=== PATIENT | female | born 1955 | race Caucasian/White ===

== ENCOUNTER 2021-12-19 17:33 | Emergency (ER) | payer SELFPAY ==
[2021-12-19 18:00] VITALS: BP 115/69; PULSE 96; RESP 22; TEMP 98.3; BMI 26.5
[2021-12-19] MEDS ORDERED: oxyCODONE HCL 5 MG TABLET PO ONE (19:45)
[2021-12-19] MEDS ORDERED: oxyCODONE HCL 5 MG TABLET ONE (20:00)
== END 2021-12-19 20:11 | disposition home or self-care (01) ==
LOC: JERFT 17:33
DX: M79.604 Pain in right leg (principal); M79.605 Pain in left leg; G89.29 Other chronic pain; Z76.0 Encounter for issue of repeat prescription
CPT/HCPCS: 99281-25

== ENCOUNTER 2022-06-23 19:34 | Inpatient (IN) | payer OTHER ==
[2022-06-23 20:59] VITALS: BMI 24.3
[2022-06-23] MEDS ORDERED: POLYETHYLENE GLYCOL (HEALTHYLAX) 3350 17 GM PACKET PO PRN (21:30)
[2022-06-23] MEDS ORDERED: BISMUTH SUBSALICYLATE 524 MG/30 ML PO PRN (21:30)
[2022-06-23] MEDS ORDERED: IBUPROFEN 600 MG TABLET (FP) PO PRN (21:30)
[2022-06-23] MEDS ORDERED: IBUPROFEN 400 MG TABLET (FP) PO PRN (21:30)
[2022-06-23] MEDS ORDERED: LOPERAMIDE HCL 2 MG CAPSULE PO PRN (21:30)
[2022-06-23] MEDS ORDERED: ONDANSETRON *ODT* 4 MG TABLET SL PRN (21:30)
[2022-06-23] MEDS ORDERED: NALOXONE HCL (KLOXXADO) 8 MG SPRAY NS PRN (21:30)
[2022-06-23] MEDS ORDERED: P-EPHED 60MG/TRIPROLIDI 2.5MG TABLET PO PRN (21:30)
[2022-06-23] MEDS ORDERED: MAGNESIUM HYDROX 2400MG/30ML ORAL SUSPENSION 30 ML CUP PO PRN (21:30)
[2022-06-23] MEDS ORDERED: NICOTINE POLACRILEX 2 MG GUM BUC PRN (21:30)
[2022-06-23] MEDS ORDERED: BENZOCAINE/MENTHOL (CHLORASEPTIC ) LOZENGE MM PRN (21:30)
[2022-06-23] MEDS ORDERED: guaiFENesin 200 MG/10 ML 10 ML UNIT-DOSE CUPS PO PRN (21:30)
[2022-06-23] MEDS ORDERED: NICOTINE 7 MG/24 HOURS TOPICAL PATCH TD PRN (21:30)
[2022-06-23] MEDS ORDERED: MAG HYDROX/AL HYDROX/SIMETH 30 ML UNIT-DOSE CUP PO PRN (21:30)
[2022-06-23] MEDS ORDERED: ACETAMINOPHEN 325 MG TABLET (FP) PO PRN (21:30)
[2022-06-23] MEDS ORDERED: hydrOXYzine PAMOATE 25 MG CAPSULE (FP) PO PRN (21:30)
[2022-06-23] MEDS: METHOCARBAMOL 500 MG TABLET PO PRN (23:48)
[2022-06-23] MEDS: MELATONIN 5 MG TABLETS PO PRN (23:48)
[2022-06-23] MEDS: THIAMINE HCL 100 MG TABLET (FP) PO SCH (23:48)
[2022-06-24] MEDS: DICYCLOMINE HCL 10 MG CAPSULE PO PRN ×2 (02:46→21:06)
[2022-06-24] MEDS ORDERED: methaDONE HCL 10 MG TABLET (FOR DETOX USE ONLY) PO ONE (09:46)
[2022-06-24] MEDS ORDERED: predniSONE 20 MG TABLET (UD) PO SCH (10:00)
[2022-06-24] MEDS: PRENATAL VITAMINS W/ FOLIC ACID TABLET (FP) PO SCH (10:08)
[2022-06-24] MEDS: ALBUTEROL SO4 HFA INHALER IH SCH ×4 (10:08→22:19)
[2022-06-24] MEDS: ACETAMINOPHEN 325 MG TABLET (FP) PO PRN (10:09)
[2022-06-24] MEDS: diazePAM 5 MG TABLET PO SCH ×3 (10:09→22:19)
[2022-06-24 10:33] LABS: HEMATOCRIT 33.6 % (32.4-45.2); HEMOGLOBIN 11.2 GM/dL (10.7-15.3); MCH 29.2 pg (25.7-33.7); MCHC 33.3 g/dl (32.0-36.0); MEAN CELL VOLUME 87.6 fl (80-96); MEAN PLT VOLUME 6.6 fl (7.5-11.1); PLATELET COUNT 493 10^3/uL (134-434); RBC 3.83 M/mm3 (3.60-5.2); RDW 14.3 % (11.6-15.6); WHITE BLOOD COUNT 4.8 K/mm3 (4.0-10.0)
[2022-06-24 10:44] LABS: ALBUMIN 2.9 g/dl (3.4-5.0); BLOOD UREA NITROGEN 16.9 mg/dL (7-18); CALCIUM 9.2 mg/dL (8.5-10.1)
[2022-06-24 10:47] LABS: CREATININE 0.7 mg/dL (0.55-1.3)
[2022-06-24 10:49] LABS: BILIRUBIN,TOTAL 0.3 mg/dL (0.2-1); TOT PROT 6.6 g/dl (6.4-8.2)
[2022-06-24] MEDS: METHOCARBAMOL 500 MG TABLET PO PRN ×2 (17:21→22:21)
[2022-06-24] MEDS: MELATONIN 5 MG TABLETS PO PRN (22:18)
[2022-06-24] MEDS: THIAMINE HCL 100 MG TABLET (FP) PO SCH (22:19)
[2022-06-25] MEDS: METHOCARBAMOL 500 MG TABLET PO PRN ×3 (04:23→22:26)
[2022-06-25] MEDS: ACETAMINOPHEN 325 MG TABLET (FP) PO PRN (04:24)
[2022-06-25] MEDS: diazePAM 5 MG TABLET PO SCH ×3 (05:46→22:25)
[2022-06-25] MEDS: ALBUTEROL SO4 HFA INHALER IH SCH ×4 (10:08→22:00)
[2022-06-25] MEDS: PRENATAL VITAMINS W/ FOLIC ACID TABLET (FP) PO SCH (10:08)
[2022-06-25] MEDS: DICYCLOMINE HCL 10 MG CAPSULE PO PRN (10:11)
[2022-06-25] MEDS: diazePAM 5 MG TABLET PO PRN (17:21)
[2022-06-25] MEDS: MELATONIN 5 MG TABLETS PO PRN (22:25)
[2022-06-25] MEDS: THIAMINE HCL 100 MG TABLET (FP) PO SCH (22:25)
[2022-06-26] MEDS: diazePAM 5 MG TABLET PO SCH ×2 (05:25→17:50)
[2022-06-26] MEDS ORDERED: methaDONE HCL 10 MG TABLET (FOR DETOX USE ONLY) PO ONE (10:00)
[2022-06-26] MEDS: METHOCARBAMOL 500 MG TABLET PO PRN ×2 (10:08→22:17)
[2022-06-26] MEDS: PRENATAL VITAMINS W/ FOLIC ACID TABLET (FP) PO SCH (10:08)
[2022-06-26] MEDS: ALBUTEROL SO4 HFA INHALER IH SCH ×4 (10:08→22:22)
[2022-06-26] MEDS: THIAMINE HCL 100 MG TABLET (FP) PO SCH (22:16)
[2022-06-26] MEDS: MELATONIN 5 MG TABLETS PO PRN (22:16)
[2022-06-26] MEDS: diazePAM 5 MG TABLET PO PRN (22:20)
[2022-06-27] MEDS ORDERED: diazePAM 5 MG TABLET PO ONE (06:00)
[2022-06-27] MEDS: PRENATAL VITAMINS W/ FOLIC ACID TABLET (FP) PO SCH (10:04)
[2022-06-27] MEDS: ALBUTEROL SO4 HFA INHALER IH SCH ×4 (10:04→22:31)
[2022-06-27] MEDS: METHOCARBAMOL 500 MG TABLET PO PRN ×2 (10:05→18:02)
[2022-06-27] MEDS ORDERED: NICOTINE 10 MG CARTRIDGE (INHALER) IH PRN (20:04)
[2022-06-27] MEDS: THIAMINE HCL 100 MG TABLET (FP) PO SCH (22:11)
[2022-06-27] MEDS: MELATONIN 5 MG TABLETS PO PRN (22:12)
[2022-06-28 07:00] VITALS: RESP 16
[2022-06-28 09:19] VITALS: BP 127/71; PULSE 80; TEMP 96.8
[2022-06-28] MEDS: PRENATAL VITAMINS W/ FOLIC ACID TABLET (FP) PO SCH (10:00)
[2022-06-28] MEDS: ALBUTEROL SO4 HFA INHALER IH SCH (10:00)
[2022-06-28] MEDS ORDERED: methaDONE HCL 10 MG TABLET (FOR DETOX USE ONLY) PO ONE (10:00)
== END 2022-06-28 09:55 | disposition home or self-care (01) | DRG 897 ==
LOC: YASAS 19:34 → Y6N 23:06
PROVIDERS: ADMIT Allergy & Immunology; ATTEND Family Medicine
PROC: HZ2ZZZZ Detoxification Services for Substance Abuse Treatment (ICD-10-PCS; principal; 2022-06-23)
DX: F11.23 Opioid dependence with withdrawal (principal); F13.230 Sedative, hypnotic or anxiolytic dependence with withdrawal, uncomplicated; F17.210 Nicotine dependence, cigarettes, uncomplicated; F41.9 Anxiety disorder, unspecified; F32.A Depression, unspecified; Z86.19 Personal history of other infectious and parasitic diseases; Z87.19 Personal history of other diseases of the digestive system; Z99.89 Dependence on other enabling machines and devices
CPT/HCPCS: 36415; 80053; 85027; 86780; C9803-CS; U0003; U0005

== ENCOUNTER 2022-11-03 20:45 | Inpatient (IN) | payer OTHER ==
[2022-11-03 22:10] VITALS: BMI 28.1
[2022-11-04] MEDS ORDERED: NALOXONE HCL 0.4 MG/ML VIAL IM PRN (01:55)
[2022-11-04] MEDS ORDERED: ACETAMINOPHEN 325 MG TABLET (FP) PO PRN (01:55)
[2022-11-04] MEDS ORDERED: IBUPROFEN 600 MG TABLET (FP) PO PRN (01:55)
[2022-11-04] MEDS ORDERED: guaiFENesin 600 MG TABLET.ER (FP) PO PRN (01:55)
[2022-11-04] MEDS ORDERED: BENZOCAINE/MENTHOL (CHLORASEPTIC ) LOZENGE MM PRN (01:55)
[2022-11-04] MEDS ORDERED: LOPERAMIDE HCL 2 MG CAPSULE PO PRN (01:55)
[2022-11-04] MEDS ORDERED: NALOXONE HCL (KLOXXADO) 8 MG SPRAY NS PRN (01:55)
[2022-11-04] MEDS ORDERED: IBUPROFEN 400 MG TABLET (FP) PO PRN (01:55)
[2022-11-04] MEDS ORDERED: BENZONATATE 200 MG CAPSULE PO PRN (01:55)
[2022-11-04] MEDS ORDERED: MAGNESIUM HYDROX 2400MG/30ML ORAL SUSPENSION 30 ML CUP PO PRN (01:55)
[2022-11-04] MEDS ORDERED: BISMUTH SUBSALICYLATE 524 MG/30 ML PO PRN (01:55)
[2022-11-04] MEDS ORDERED: POLYETHYLENE GLYCOL (HEALTHYLAX) 3350 17 GM PACKET PO PRN (01:55)
[2022-11-04] MEDS ORDERED: NICOTINE 10 MG CARTRIDGE (INHALER) IH PRN (01:55)
[2022-11-04] MEDS ORDERED: MAG HYDROX/AL HYDROX/SIMETH 30 ML UNIT-DOSE CUP PO PRN (01:55)
[2022-11-04] MEDS: DICYCLOMINE HCL 10 MG CAPSULE PO PRN (07:38)
[2022-11-04] MEDS: PRENATAL VITAMINS W/ FOLIC ACID TABLET (FP) PO SCH (09:56)
[2022-11-04] MEDS: METHOCARBAMOL 500 MG TABLET PO PRN (10:23)
[2022-11-04] MEDS ORDERED: methaDONE HCL 10 MG TABLET (FOR DETOX USE ONLY) PO ONE (11:59)
[2022-11-04] MEDS: MELATONIN 5 MG TABLETS PO SCH (22:20)
[2022-11-04] MEDS: THIAMINE HCL 100 MG TABLET (FP) PO SCH (22:20)
[2022-11-05] MEDS: METHOCARBAMOL 500 MG TABLET PO PRN ×3 (01:52→20:50)
[2022-11-05] MEDS: cloNIDine HCL 0.1 MG TABLET PO PRN ×3 (01:52→20:50)
[2022-11-05] MEDS: ONDANSETRON *ODT* 4 MG TABLET SL PRN (08:00)
[2022-11-05] MEDS: PRENATAL VITAMINS W/ FOLIC ACID TABLET (FP) PO SCH (09:37)
[2022-11-05 11:25] LABS: HEMATOCRIT 38.1 % (32.4-45.2); HEMOGLOBIN 12.7 GM/dL (10.7-15.3); MCH 28.9 pg (25.7-33.7); MCHC 33.2 g/dl (32.0-36.0); MEAN CELL VOLUME 86.8 fl (80-96); PLATELET COUNT 347 10^3/uL (134-434); RBC 4.39 M/mm3 (3.60-5.2); RDW 13.7 % (11.6-15.6); WHITE BLOOD COUNT 4.7 K/mm3 (4.0-10.0)
[2022-11-05 11:29] LABS: POTASSIUM 4.2 mmol/L (3.5-5.1)
[2022-11-05 11:31] LABS: URINE APPEARANCE CLEAR; URINE BILIRUBIN NEGATIVE (NEGATIVE); URINE COLOR YELLOW; URINE GLUCOSE (UA) NEGATIVE (NEGATIVE); URINE KETONE TRACE (NEGATIVE); URINE LEUK ESTERASE NEGATIVE (NEGATIVE); URINE NITRITE NEGATIVE (NEGATIVE); URINE PROTEIN NEGATIVE (NEGATIVE); URINE UROBILINOGEN 0.2 mg/dL (0.2-1.0)
[2022-11-05 11:34] LABS: EPI CELLS 20 /uL (0-25.1); HYALINE CASTS 0 /uL (0-3.1); URINE BACTERIA 161 /uL (0-1359); URINE RBC 4 /uL (0-23.9); URINE WBC 6 /uL (0-25.8)
[2022-11-05 11:37] LABS: CREATININE 0.7 mg/dL (0.55-1.3)
[2022-11-05 11:38] LABS: BLOOD UREA NITROGEN 11.7 mg/dL (7-18); TOT PROT 6.9 g/dl (6.4-8.2)
[2022-11-05 11:39] LABS: ALBUMIN 3.6 g/dl (3.4-5.0); BILIRUBIN,TOTAL 0.4 mg/dL (0.2-1)
[2022-11-05 11:40] LABS: CALCIUM 9.4 mg/dL (8.5-10.1)
[2022-11-05 12:45] LABS: HIV INTERPRETATION NEGATIVE (NEGATIVE)
[2022-11-05] MEDS: DICYCLOMINE HCL 10 MG CAPSULE PO PRN (20:50)
[2022-11-05] MEDS: THIAMINE HCL 100 MG TABLET (FP) PO SCH (22:37)
[2022-11-05] MEDS: MELATONIN 5 MG TABLETS PO SCH (22:37)
[2022-11-06] MEDS: ONDANSETRON *ODT* 4 MG TABLET SL PRN (05:35)
[2022-11-06] MEDS: DICYCLOMINE HCL 10 MG CAPSULE PO PRN ×3 (05:36→22:03)
[2022-11-06] MEDS: cloNIDine HCL 0.1 MG TABLET PO PRN ×2 (05:37→22:03)
[2022-11-06] MEDS: METHOCARBAMOL 500 MG TABLET PO PRN ×2 (05:52→19:06)
[2022-11-06] MEDS: PRENATAL VITAMINS W/ FOLIC ACID TABLET (FP) PO SCH (09:04)
[2022-11-06] MEDS ORDERED: diazePAM 5 MG TABLET PO ONE (09:45)
[2022-11-06] MEDS ORDERED: methaDONE HCL 10 MG TABLET (FOR DETOX USE ONLY) PO ONE (10:00)
[2022-11-06] MEDS: MELATONIN 5 MG TABLETS PO SCH (22:03)
[2022-11-06] MEDS: THIAMINE HCL 100 MG TABLET (FP) PO SCH (22:03)
[2022-11-07] MEDS: ONDANSETRON *ODT* 4 MG TABLET SL PRN (05:03)
[2022-11-07 09:04] VITALS: TEMP 97.7
[2022-11-07] MEDS: PRENATAL VITAMINS W/ FOLIC ACID TABLET (FP) PO SCH (09:58)
[2022-11-07 11:44] VITALS: BP 159/85; PULSE 69; RESP 15
== END 2022-11-07 11:43 | disposition home or self-care (01) | DRG 897 ==
LOC: YASAS 20:45 → Y3N 11-04 02:59
PROVIDERS: ADMIT Allergy & Immunology; ATTEND Surgery
PROC: HZ2ZZZZ Detoxification Services for Substance Abuse Treatment (ICD-10-PCS; principal; 2022-11-04)
DX: F11.23 Opioid dependence with withdrawal (principal); F13.20 Sedative, hypnotic or anxiolytic dependence, uncomplicated; F17.210 Nicotine dependence, cigarettes, uncomplicated; F19.24 Other psychoactive substance dependence with psychoactive substance-induced mood disorder; F32.A Depression, unspecified; G47.00 Insomnia, unspecified; Z87.19 Personal history of other diseases of the digestive system; Z98.890 Other specified postprocedural states
CPT/HCPCS: 36415; 80053; 81003; 85027; 86780; 87086; 87389; 87635; Q0162

== ENCOUNTER 2022-12-03 12:09 | Inpatient (IN) | payer OTHER ==
[2022-12-03 13:44] VITALS: BMI 27.1
[2022-12-03] MEDS ORDERED: cloNIDine HCL 0.1 MG TABLET PO ONE (15:37)
[2022-12-03] MEDS ORDERED: guaiFENesin 600 MG TABLET.ER (FP) PO PRN (15:37)
[2022-12-03] MEDS ORDERED: LOPERAMIDE HCL 2 MG CAPSULE PO PRN (15:37)
[2022-12-03] MEDS ORDERED: MAG HYDROX/AL HYDROX/SIMETH 30 ML UNIT-DOSE CUP PO PRN (15:37)
[2022-12-03] MEDS ORDERED: hydrOXYzine PAMOATE 25 MG CAPSULE (FP) PO PRN (15:37)
[2022-12-03] MEDS ORDERED: BISMUTH SUBSALICYLATE 262 MG/15 ML BTL PO PRN (15:37)
[2022-12-03] MEDS ORDERED: NICOTINE POLACRILEX 2 MG GUM BUC PRN (15:37)
[2022-12-03] MEDS ORDERED: BUPRENORPHINE HCL 150 MCG, BUPRENORPHINE HCL 75 MCG BC PRN (15:37)
[2022-12-03] MEDS ORDERED: POLYETHYLENE GLYCOL (HEALTHYLAX) 3350 17 GM PACKET PO PRN (15:37)
[2022-12-03] MEDS ORDERED: ACETAMINOPHEN 325 MG TABLET (FP) PO PRN (15:37)
[2022-12-03] MEDS ORDERED: MAGNESIUM HYDROX 2400MG/30ML ORAL SUSPENSION 30 ML CUP PO PRN (15:37)
[2022-12-03] MEDS ORDERED: DICYCLOMINE HCL 10 MG CAPSULE PO PRN (15:37)
[2022-12-03] MEDS ORDERED: IBUPROFEN 400 MG TABLET (FP) PO PRN (15:37)
[2022-12-03] MEDS ORDERED: NALOXONE HCL 0.4 MG/ML VIAL IM PRN (15:37)
[2022-12-03] MEDS ORDERED: BENZONATATE 200 MG CAPSULE PO PRN (15:37)
[2022-12-03] MEDS ORDERED: BUPRENORPHINE HCL 150 MCG, BUPRENORPHINE HCL 75 MCG BC ONE (15:37)
[2022-12-03] MEDS ORDERED: NICOTINE 10 MG CARTRIDGE (INHALER) IH PRN (15:37)
[2022-12-03] MEDS ORDERED: NALOXONE HCL (KLOXXADO) 8 MG SPRAY NS PRN (15:37)
[2022-12-03] MEDS ORDERED: BENZOCAINE/MENTHOL (CHLORASEPTIC ) LOZENGE MM PRN (15:37)
[2022-12-03] MEDS ORDERED: BUPRENORPHINE HCL 150 MCG FILM BC ONE (17:15)
[2022-12-03] MEDS ORDERED: cloNIDine HCL 0.1 MG TABLET ONE (17:16)
[2022-12-03] MEDS ORDERED: BUPRENORPHINE HCL 75 MCG FILM BC ONE (17:16)
[2022-12-03] MEDS: IBUPROFEN 600 MG TABLET (FP) PO PRN (18:49)
[2022-12-03] MEDS: THIAMINE HCL 100 MG TABLET (FP) PO SCH (22:29)
[2022-12-03] MEDS: MELATONIN 5 MG TABLETS PO SCH (22:29)
[2022-12-03] MEDS: diazePAM 5 MG TABLET PO PRN (22:30)
[2022-12-04] MEDS ORDERED: BUPRENORPHINE HCL 150 MCG, BUPRENORPHINE HCL 75 MCG BC PRN
[2022-12-04] MEDS: BACLOFEN 10 MG TABLET (FP) PO PRN ×3 (04:14→21:10)
[2022-12-04] MEDS: IBUPROFEN 600 MG TABLET (FP) PO PRN (04:15)
[2022-12-04] MEDS: diazePAM 5 MG TABLET PO PRN ×3 (04:17→22:35)
[2022-12-04] MEDS: BUPRENORPHINE HCL 150 MCG, BUPRENORPHINE HCL 75 MCG BC SCH ×2 (05:32→18:01)
[2022-12-04] MEDS: PRENATAL VITAMINS W/ FOLIC ACID TABLET (FP) PO SCH (10:20)
[2022-12-04 10:43] LABS: HEMOGLOBIN 12.2 GM/dL (10.7-15.3); MEAN CELL VOLUME 87.7 fl (80-96); MEAN PLT VOLUME 7.1 fl (7.5-11.1); PLATELET COUNT 359 10^3/uL (134-434); RBC 4.21 M/mm3 (3.60-5.2); RDW 13.9 % (11.6-15.6); WHITE BLOOD COUNT 4.6 K/mm3 (4.0-10.0)
[2022-12-04] MEDS ORDERED: ALBUTEROL SO4 HFA INHALER IH PRN (11:54)
[2022-12-04 12:07] LABS: POTASSIUM 4.4 mmol/L (3.5-5.1)
[2022-12-04 12:17] LABS: ALBUMIN 3.5 g/dl (3.4-5.0); BLOOD UREA NITROGEN 18.8 mg/dL (7-18)
[2022-12-04 12:18] LABS: CREATININE 0.8 mg/dL (0.55-1.3)
[2022-12-04 12:20] LABS: BILIRUBIN,TOTAL 0.4 mg/dL (0.2-1); TOT PROT 6.7 g/dl (6.4-8.2)
[2022-12-04] MEDS: DICYCLOMINE HCL 10 MG CAPSULE PO PRN ×2 (12:32→21:10)
[2022-12-04] MEDS: THIAMINE HCL 100 MG TABLET (FP) PO SCH (21:09)
[2022-12-04] MEDS: MELATONIN 5 MG TABLETS PO SCH (21:09)
[2022-12-04] MEDS: cloNIDine HCL 0.1 MG TABLET PO PRN (22:35)
[2022-12-05] MEDS: BUPRENORPHINE HCL 450 MCG FILM BC SCH ×2 (05:47→18:09)
[2022-12-05] MEDS: diazePAM 5 MG TABLET PO PRN ×2 (05:49→12:54)
[2022-12-05] MEDS: ONDANSETRON *ODT* 4 MG TABLET SL PRN ×2 (08:46→22:16)
[2022-12-05] MEDS ORDERED: TRIMETHOBENZAMIDE HCL 200MG/2ML INJ IM ONE ×3 (09:15→23:22)
[2022-12-05] MEDS: DICYCLOMINE HCL 10 MG CAPSULE PO PRN ×2 (10:08→18:11)
[2022-12-05] MEDS: PRENATAL VITAMINS W/ FOLIC ACID TABLET (FP) PO SCH (10:09)
[2022-12-05] MEDS: IBUPROFEN 600 MG TABLET (FP) PO PRN (12:55)
[2022-12-05] MEDS ORDERED: BUPRENORPHINE HCL 75 MCG FILM BC ONE (22:00)
[2022-12-05] MEDS ORDERED: BUPRENORPHINE HCL 150 MCG FILM BC ONE (22:00)
[2022-12-05] MEDS: THIAMINE HCL 100 MG TABLET (FP) PO SCH (22:16)
[2022-12-05] MEDS: MELATONIN 5 MG TABLETS PO SCH (22:16)
[2022-12-06] MEDS ORDERED: BUPRENORPHINE/NALOXONE 4 MG/1 MG FILM PACKET SL SCH (06:00)
[2022-12-06] MEDS: diazePAM 5 MG TABLET PO PRN ×2 (06:11→20:32)
[2022-12-06] MEDS: cloNIDine HCL 0.1 MG TABLET PO PRN ×2 (08:48→17:55)
[2022-12-06] MEDS: DICYCLOMINE HCL 10 MG CAPSULE PO PRN (08:49)
[2022-12-06] MEDS: ONDANSETRON *ODT* 4 MG TABLET SL PRN (08:49)
[2022-12-06] MEDS ORDERED: methaDONE HCL 10 MG TABLET (FOR DETOX USE ONLY) PO ONE ×2 (10:00→23:00)
[2022-12-06] MEDS: PRENATAL VITAMINS W/ FOLIC ACID TABLET (FP) PO SCH (10:39)
[2022-12-06] MEDS ORDERED: BUPRENORPHINE/NALOXONE 4 MG/1 MG FILM PACKET SL ONE ×2 (12:00→22:00)
[2022-12-06] MEDS: MELATONIN 5 MG TABLETS PO SCH (22:26)
[2022-12-06] MEDS: THIAMINE HCL 100 MG TABLET (FP) PO SCH (22:26)
[2022-12-07] MEDS ORDERED: BUPRENORPHINE/NALOXONE 8 MG/2 MG FILM PACKET SL ONE ×2 (06:00→10:00)
[2022-12-07 09:21] VITALS: BP 140/72; PULSE 85; RESP 18; TEMP 97.3
[2022-12-07] MEDS: PRENATAL VITAMINS W/ FOLIC ACID TABLET (FP) PO SCH (10:37)
[2022-12-07] MEDS: ONDANSETRON *ODT* 4 MG TABLET SL PRN (12:57)
== END 2022-12-07 13:30 | disposition home or self-care (01) | DRG 897 ==
LOC: YASAS 12:09 → Y3N 16:54
PROVIDERS: ADMIT Allergy & Immunology; ATTEND Surgery
PROC: HZ2ZZZZ Detoxification Services for Substance Abuse Treatment (ICD-10-PCS; principal; 2022-12-03)
DX: F11.23 Opioid dependence with withdrawal (principal); F17.210 Nicotine dependence, cigarettes, uncomplicated; F19.24 Other psychoactive substance dependence with psychoactive substance-induced mood disorder; F32.A Depression, unspecified; G62.9 Polyneuropathy, unspecified; G47.00 Insomnia, unspecified; R11.2 Nausea with vomiting, unspecified; M47.816 Spondylosis without myelopathy or radiculopathy, lumbar region; Z99.89 Dependence on other enabling machines and devices; Z87.19 Personal history of other diseases of the digestive system; Z93.2 Ileostomy status
CPT/HCPCS: 36415; 80053; 85027; 86780; 87635; J0475; Q0162

== ENCOUNTER 2023-01-07 21:17 | Inpatient (IN) | payer OTHER ==
[2023-01-07 21:50] VITALS: BMI 25.7
[2023-01-07] MEDS ORDERED: BISMUTH SUBSALICYLATE 524 MG/30 ML PO PRN (23:50)
[2023-01-07] MEDS ORDERED: ONDANSETRON *ODT* 4 MG TABLET SL PRN (23:50)
[2023-01-07] MEDS ORDERED: BENZONATATE 200 MG CAPSULE PO PRN (23:50)
[2023-01-07] MEDS ORDERED: IBUPROFEN 600 MG TABLET (FP) PO PRN (23:50)
[2023-01-07] MEDS ORDERED: guaiFENesin 600 MG TABLET.ER (FP) PO PRN (23:50)
[2023-01-07] MEDS ORDERED: LOPERAMIDE HCL 2 MG CAPSULE PO PRN (23:50)
[2023-01-07] MEDS ORDERED: BENZOCAINE/MENTHOL (CHLORASEPTIC ) LOZENGE MM PRN (23:50)
[2023-01-07] MEDS ORDERED: MAG HYDROX/AL HYDROX/SIMETH 30 ML UNIT-DOSE CUP PO PRN (23:50)
[2023-01-07] MEDS ORDERED: IBUPROFEN 400 MG TABLET (FP) PO PRN (23:50)
[2023-01-07] MEDS ORDERED: NICOTINE POLACRILEX 2 MG GUM BUC PRN (23:50)
[2023-01-07] MEDS ORDERED: hydrOXYzine PAMOATE 25 MG CAPSULE (FP) PO PRN (23:50)
[2023-01-07] MEDS ORDERED: POLYETHYLENE GLYCOL (HEALTHYLAX) 3350 17 GM PACKET PO PRN (23:50)
[2023-01-07] MEDS ORDERED: ACETAMINOPHEN 325 MG TABLET (FP) PO PRN (23:50)
[2023-01-07] MEDS ORDERED: NALOXONE HCL (KLOXXADO) 8 MG SPRAY NS PRN (23:50)
[2023-01-07] MEDS ORDERED: MAGNESIUM HYDROX 2400MG/30ML ORAL SUSPENSION 30 ML CUP PO PRN (23:50)
[2023-01-07] MEDS ORDERED: P-EPHED 60MG/TRIPROLIDI 2.5MG TABLET PO PRN (23:50)
[2023-01-07] MEDS ORDERED: NALOXONE HCL 0.4 MG/ML VIAL IM PRN (23:50)
[2023-01-08] MEDS ORDERED: IBUPROFEN 600 MG TABLET (FP) PO ONE (01:46)
[2023-01-08] MEDS: PRENATAL VITAMINS W/ FOLIC ACID TABLET (FP) PO SCH (10:38)
[2023-01-08] MEDS ORDERED: cloNIDine HCL 0.1 MG TABLET PO PRN (10:41)
[2023-01-08] MEDS ORDERED: methaDONE HCL 10 MG TABLET (FOR DETOX USE ONLY) PO ONE (10:41)
[2023-01-08 11:21] LABS: HEMATOCRIT 37.3 % (32.4-45.2); HEMOGLOBIN 12.7 GM/dL (10.7-15.3); MCH 29.6 pg (25.7-33.7); MCHC 34.1 g/dl (32.0-36.0); MEAN CELL VOLUME 86.9 fl (80-96); MEAN PLT VOLUME 6.7 fl (7.5-11.1); PLATELET COUNT 303 10^3/uL (134-434); RBC 4.29 M/mm3 (3.60-5.2); RDW 14.3 % (11.6-15.6)
[2023-01-08 11:25] LABS: POTASSIUM 4.3 mmol/L (3.5-5.1)
[2023-01-08 11:59] LABS: BLOOD UREA NITROGEN 15.3 mg/dL (7-18)
[2023-01-08 12:01] LABS: ALBUMIN 3.8 g/dl (3.4-5.0)
[2023-01-08 12:03] LABS: CREATININE 0.6 mg/dL (0.55-1.3)
[2023-01-08 12:05] LABS: BILIRUBIN,TOTAL 0.6 mg/dL (0.2-1); TOT PROT 7.2 g/dl (6.4-8.2)
[2023-01-08] MEDS: diazePAM 5 MG TABLET PO PRN (19:21)
[2023-01-08] MEDS ORDERED: MELATONIN 5 MG TABLETS PO SCH (22:00)
[2023-01-08] MEDS: THIAMINE HCL 100 MG TABLET (FP) PO SCH (22:04)
[2023-01-08] MEDS: traZODone HCL 50 MG TABLET (FP) PO SCH (22:04)
[2023-01-09] MEDS ORDERED: TRIMETHOBENZAMIDE HCL 200MG/2ML INJ IM ONE ×3 (05:06→11:40)
[2023-01-09] MEDS ORDERED: ONDANSETRON *ODT* 4 MG TABLET SL ONE (05:35)
[2023-01-09] MEDS: diazePAM 5 MG TABLET PO PRN ×2 (06:21→15:03)
[2023-01-09] MEDS ORDERED: methaDONE HCL 10 MG TABLET (FOR DETOX USE ONLY) PO ONE (10:00)
[2023-01-09] MEDS: PRENATAL VITAMINS W/ FOLIC ACID TABLET (FP) PO SCH (10:36)
[2023-01-09] MEDS ORDERED: DICYCLOMINE HCL 10 MG CAPSULE PO PRN (11:00)
[2023-01-09] MEDS ORDERED: ONDANSETRON 4 MG/2 ML VIAL IM ONE (11:35)
[2023-01-09 17:00] VITALS: TEMP 98.7
[2023-01-09] MEDS: traZODone HCL 50 MG TABLET (FP) PO SCH (22:59)
[2023-01-09] MEDS: THIAMINE HCL 100 MG TABLET (FP) PO SCH (22:59)
[2023-01-10 05:44] VITALS: BP 180/89; PULSE 92; RESP 16
[2023-01-10] MEDS ORDERED: methaDONE HCL 10 MG TABLET (FOR DETOX USE ONLY) PO ONE (10:00)
[2023-01-11] MEDS ORDERED: methaDONE HCL 10 MG TABLET (FOR DETOX USE ONLY) PO ONE (10:00)
[2023-01-12] MEDS ORDERED: methaDONE HCL 10 MG TABLET (FOR DETOX USE ONLY) PO ONE (06:00)
== END 2023-01-10 05:45 | disposition left against medical advice (07) | DRG 894 ==
LOC: YASAS 21:17 → Y3N 01-08 10:28
PROVIDERS: ADMIT Allergy & Immunology; ATTEND Allergy & Immunology
PROC: HZ2ZZZZ Detoxification Services for Substance Abuse Treatment (ICD-10-PCS; principal; 2023-01-08)
DX: F11.23 Opioid dependence with withdrawal (principal); F13.20 Sedative, hypnotic or anxiolytic dependence, uncomplicated; F19.282 Other psychoactive substance dependence with psychoactive substance-induced sleep disorder; F17.210 Nicotine dependence, cigarettes, uncomplicated; F41.9 Anxiety disorder, unspecified; F32.A Depression, unspecified; G62.9 Polyneuropathy, unspecified; M54.50 Low back pain, unspecified; G89.29 Other chronic pain; R10.84 Generalized abdominal pain; R11.2 Nausea with vomiting, unspecified; Z87.19 Personal history of other diseases of the digestive system; Z86.59 Personal history of other mental and behavioral disorders
CPT/HCPCS: 36415; 80053; 85027; 86780; 87635; 87811; 93005; 93010

== ENCOUNTER 2023-01-09 18:09 | Emergency (ER) | payer OTHER ==
[2023-01-09 18:17] VITALS: BMI 25.6
[2023-01-09 19:41] LABS: BASO % 0.2 % (0-2.0); HEMATOCRIT 43.5 % (32.4-45.2); HEMOGLOBIN 15.1 GM/dL (10.7-15.3); LYMPH % 10.1 % (8-40); MCH 29.7 pg (25.7-33.7); MCHC 34.8 g/dl (32.0-36.0); MEAN CELL VOLUME 85.3 fl (80-96); MEAN PLT VOLUME 6.7 fl (7.5-11.1); MONO % 3.6 % (3.8-10.2); NEUT % 86.1 % (42.8-82.8); PLATELET COUNT 338 10^3/uL (134-434); WHITE BLOOD COUNT 7.4 K/mm3 (4.0-10.0)
[2023-01-09] MEDS ORDERED: METOCLOPRAMIDE HCL 10 MG TABLET (FP) PO ONE ×2 (19:45→20:15)
[2023-01-09 19:50] LABS: INR 1.06 (0.83-1.09); PROTHROMBIN TIME (PATIENT) 12.3 SEC (9.7-13.0)
[2023-01-09 19:53] LABS: ACTIVATED PTT 26.4 SECONDS (25.2-36.5)
[2023-01-09] MEDS ORDERED: SODIUM CHLORIDE 0.9% 500 ML INFUS.BAG IV ONE (20:13)
[2023-01-09] MEDS ORDERED: ACETAMINOPHEN 1000 MG/100 ML BAG IVPB ONE (20:13)
[2023-01-09 20:25] LABS: POTASSIUM 4.6 mmol/L (3.5-5.1)
[2023-01-09 20:27] LABS: ALBUMIN 4.3 g/dl (3.4-5.0); BLOOD UREA NITROGEN 18.1 mg/dL (7-18); CALCIUM 9.4 mg/dL (8.5-10.1)
[2023-01-09] MEDS ORDERED: ACETAMINOPHEN INJECTION 100 ML IVPB ONE (20:28)
[2023-01-09 20:30] LABS: CREATININE 0.8 mg/dL (0.55-1.3)
[2023-01-09] MEDS ORDERED: KETAMINE HCL 200 MG/20 ML VIAL IVPB ONE (20:31)
[2023-01-09 20:32] LABS: BILIRUBIN,TOTAL 0.5 mg/dL (0.2-1); TOT PROT 8.4 g/dl (6.4-8.2)
[2023-01-09] MEDS ORDERED: FAMOTIDINE 20 MG/50 ML IVPB 20 MG/50 ML MG IVPB ONE ×2 (20:33→21:57)
[2023-01-09] MEDS ORDERED: KETAMINE HCL 200 MG/20 ML VIAL ONE (21:56)
[2023-01-09] MEDS ORDERED: LORazepam 2 MG/ML SDV VIAL IVPUSH ONE (22:31)
[2023-01-10] VITALS: BP 147/69; PULSE 78; RESP 18; TEMP 98.7
== END 2023-01-10 05:11 | disposition home or self-care (01) ==
LOC: JER 18:09
PROC: 3E033GC Introduction of Other Therapeutic Substance into Peripheral Vein, Percutaneous Approach (ICD-10-PCS; principal; 2023-01-09)
PROC: 3E033NZ Introduction of Analgesics, Hypnotics, Sedatives into Peripheral Vein, Percutaneous Approach (ICD-10-PCS; 2023-01-09)
PROC: 3E033GC Introduction of Other Therapeutic Substance into Peripheral Vein, Percutaneous Approach (ICD-10-PCS; 2023-01-09)
DX: R10.84 Generalized abdominal pain (principal); M54.50 Low back pain, unspecified; G89.29 Other chronic pain; R11.2 Nausea with vomiting, unspecified; F11.23 Opioid dependence with withdrawal; R10.13 Epigastric pain
CPT/HCPCS: 36415; 71046-TC-FY; 74176-TC; 80053; 83690; 84484; 85025; 85610; 85730; 96365; 96375; 99285-25

== ENCOUNTER 2023-07-17 16:58 | Inpatient (IN) | payer OTHER ==
[2023-07-17] MEDS ORDERED: ALBUTEROL SO4 2.5/IPRATROPIUM 0.5 INH SOL 3 ML VIAL.NEB. NEB ONE (17:42)
[2023-07-17] MEDS ORDERED: DEXAMETHASONE SOD PHOSPHATE 10 MG/1 ML VIAL ONE (17:42)
[2023-07-17] MEDS: ALBUTEROL SO4 2.5/IPRATROPIUM 0.5 INH SOL 3 ML VIAL.NEB. NEB SCH (17:43)
[2023-07-17] MEDS: DEXAMETHASONE SOD PHOSPHATE 4 MG/1 ML VIAL IVPUSH ONE (17:43)
[2023-07-17 18:27] LABS: BASO % 0.5 % (0-2.0); EOS % 3.4 % (0-4.5); HEMATOCRIT 37.9 % (32.4-45.2); HEMOGLOBIN 12.9 GM/dL (10.7-15.3); LYMPH % 16.5 % (8-40); MCH 29.6 pg (25.7-33.7); MCHC 34.2 g/dl (32.0-36.0); MEAN CELL VOLUME 86.7 fl (80-96); MEAN PLT VOLUME 6.3 fl (7.5-11.1); MONO % 9.8 % (3.8-10.2); NEUT % 69.8 % (42.8-82.8); PLATELET COUNT 258 10^3/uL (134-434); RBC 4.37 M/mm3 (3.60-5.2); RDW 13.8 % (11.6-15.6); WHITE BLOOD COUNT 3.8 K/mm3 (4.0-10.0)
[2023-07-17 18:52] LABS: POTASSIUM 3.5 mmol/L (3.5-5.1)
[2023-07-17 18:54] LABS: ALBUMIN 3.6 g/dl (3.4-5.0); BLOOD UREA NITROGEN 14.5 mg/dL (7-18); CALCIUM 8.8 mg/dL (8.5-10.1)
[2023-07-17 18:57] LABS: CREATININE 0.8 mg/dL (0.55-1.3)
[2023-07-17 19:00] LABS: BILIRUBIN,TOTAL 0.2 mg/dL (0.2-1); TOT PROT 7.5 g/dl (6.4-8.2)
[2023-07-17 19:03] LABS: N-TERMINAL BNP 86.4 pg/ml (5-125)
[2023-07-17] MEDS ORDERED: TERBUTALINE SULFATE 1 MG/1 ML VIAL SQ ONE (19:55)
[2023-07-17 19:56] LABS: PH,URINE 5.5 (5.0-8.0); URINE APPEARANCE CLOUDY; URINE BILIRUBIN NEGATIVE (NEGATIVE); URINE COLOR YELLOW; URINE GLUCOSE (UA) NEGATIVE (NEGATIVE); URINE KETONE NEGATIVE (NEGATIVE); URINE LEUK ESTERASE NEGATIVE (NEGATIVE); URINE NITRITE NEGATIVE (NEGATIVE); URINE PROTEIN TRACE (NEGATIVE); URINE UROBILINOGEN 0.2 mg/dL (0.2-1.0)
[2023-07-17] MEDS: TERBUTALINE SULFATE 1 MG/1 ML VIAL SQ ONE ×2 (20:01→20:03)
[2023-07-17] MEDS ORDERED: AZITHROMYCIN IVPB 500 MG/250 ML BAG IVPB ONE (20:09)
[2023-07-17] MEDS ORDERED: MAGNESIUM 1GM/D5W - 1 GM/100 ML IVPB IVPB ONE (20:09)
[2023-07-17] MEDS: MAGNESIUM 1GM/D5W - 1 GM/100 ML IVPB IVPB ONE (20:15)
[2023-07-17] MEDS: AZITHROMYCIN IVPB 500 MG in DEXTROSE 5%-WATER - 250 ML IVPB ONE (21:17)
[2023-07-17 23:31] VITALS: BMI 27.4
[2023-07-18] MEDS: methylPREDNISolone NA SUCC 40 MG/1 ML VIAL IVPB SCH ×2 (02:09→10:32)
[2023-07-18] MEDS: BUDESONIDE/FORMETEROL FUMARATE 80/4.5 mcg INHALER IH SCH (04:04)
[2023-07-18] MEDS: ALBUTEROL SO4 2.5/IPRATROPIUM 0.5 INH SOL 3 ML VIAL.NEB. NEB SCH (07:56)
[2023-07-18 09:19] LABS: HEMATOCRIT 38.1 % (32.4-45.2); HEMOGLOBIN 12.8 GM/dL (10.7-15.3); MCH 29.4 pg (25.7-33.7); MCHC 33.6 g/dl (32.0-36.0); MEAN CELL VOLUME 87.4 fl (80-96); MEAN PLT VOLUME 6.6 fl (7.5-11.1); PLATELET COUNT 279 10^3/uL (134-434); RBC 4.36 M/mm3 (3.60-5.2); RDW 13.7 % (11.6-15.6)
[2023-07-18 09:37] LABS: POTASSIUM 4.4 mmol/L (3.5-5.1)
[2023-07-18 09:46] LABS: ALBUMIN 3.6 g/dl (3.4-5.0); BLOOD UREA NITROGEN 16.2 mg/dL (7-18); CALCIUM 8.8 mg/dL (8.5-10.1); MAGNESIUM 2.4 mg/dL (1.8-2.4)
[2023-07-18 09:48] LABS: PHOSPHOROUS 3.2 mg/dL (2.5-4.9); TOT PROT 7.8 g/dl (6.4-8.2)
[2023-07-18 09:49] LABS: BILIRUBIN,TOTAL 0.4 mg/dL (0.2-1)
[2023-07-18 09:50] LABS: CREATININE 0.8 mg/dL (0.55-1.3)
[2023-07-18] MEDS ORDERED: METHADONE HCL MC SCH (10:00)
[2023-07-18] MEDS: methaDONE HCL 10 MG TABLET PO ONE ×2 (10:20→19:18)
[2023-07-18] MEDS: ENOXAPARIN NA (PORCINE) 40 MG/0.4 ML DISP.SYRIN SQ SCH (10:22)
[2023-07-18] MEDS: PNEUMOC 20-VAL CONJ-DIP CRM/PF 0.5 ML SYRINGE IM ONE (10:29)
[2023-07-18] MEDS: AZITHROMYCIN IVPB 500 MG/250 ML BAG IVPB SCH (10:33)
[2023-07-18 12:16] LABS: HIV INTERPRETATION NEGATIVE (NEGATIVE)
[2023-07-18] MEDS ORDERED: ALBUTEROL SO4 0.083% IH SOL 2.5 MG/3 ML VIAL.NEB. NEB PRN (12:41)
[2023-07-18] MEDS: ALBUTEROL SO4 0.083% IH SOL 2.5 MG/3 ML VIAL.NEB. NEB SCH (13:14)
[2023-07-18] MEDS: CEFTRIAXONE 1 GM in DEXTROSE 5%-WATER - 50 ML IVPB SCH (14:06)
[2023-07-18] MEDS: guaiFENesin 200 MG/10 ML 10 ML UNIT-DOSE CUPS PO PRN (14:06)
[2023-07-18] MEDS: TIOTROPIUM BROMIDE 2.5 MCG (SPIRIVA) RESPIMAT INHALER IH SCH (14:06)
[2023-07-18] MEDS ORDERED: methylPREDNISolone NA SUCC 40 MG/1 ML VIAL IVPB SCH (18:00)
[2023-07-18] MEDS: methylPREDNISolone NA SUCC 40 MG/1 ML VIAL IVPUSH SCH (18:28)
[2023-07-18] MEDS ORDERED: GABAPENTIN 400 MG CAPSULE PO SCH ×2 (22:00)
[2023-07-19] MEDS: methaDONE 40 MG, methaDONE 20 MG PO SCH (05:24)
[2023-07-19] MEDS ORDERED: methaDONE HCL 40 MG DISPERSABLE TABLET PO SCH (06:00)
[2023-07-19 08:44] LABS: HEMATOCRIT 37.8 % (32.4-45.2); HEMOGLOBIN 12.6 GM/dL (10.7-15.3); MCH 29.2 pg (25.7-33.7); MCHC 33.4 g/dl (32.0-36.0); MEAN CELL VOLUME 87.2 fl (80-96); MEAN PLT VOLUME 6.7 fl (7.5-11.1); PLATELET COUNT 319 10^3/uL (134-434); RBC 4.34 M/mm3 (3.60-5.2); RDW 13.8 % (11.6-15.6); WHITE BLOOD COUNT 12.3 K/mm3 (4.0-10.0)
[2023-07-19 08:58] LABS: POTASSIUM 4.3 mmol/L (3.5-5.1)
[2023-07-19 09:10] LABS: CREATININE 0.9 mg/dL (0.55-1.3)
[2023-07-19] MEDS: guaiFENesin 200 MG/10 ML 10 ML UNIT-DOSE CUPS PO PRN (21:16)
[2023-07-19] MEDS: MELATONIN 5 MG TABLETS PO PRN (21:16)
[2023-07-20 11:50] LABS: HEMATOCRIT 37.8 % (32.4-45.2); HEMOGLOBIN 12.3 GM/dL (10.7-15.3); MCH 28.4 pg (25.7-33.7); MCHC 32.5 g/dl (32.0-36.0); MEAN CELL VOLUME 87.5 fl (80-96); MEAN PLT VOLUME 6.5 fl (7.5-11.1); PLATELET COUNT 321 10^3/uL (134-434); RBC 4.32 M/mm3 (3.60-5.2); RDW 13.8 % (11.6-15.6); WHITE BLOOD COUNT 12.8 K/mm3 (4.0-10.0)
[2023-07-20 11:52] LABS: POTASSIUM 4.5 mmol/L (3.5-5.1)
[2023-07-20 11:54] LABS: ALBUMIN 3.5 g/dl (3.4-5.0); CALCIUM 8.9 mg/dL (8.5-10.1)
[2023-07-20 11:55] LABS: BLOOD UREA NITROGEN 26.9 mg/dL (7-18); MAGNESIUM 2.7 mg/dL (1.8-2.4)
[2023-07-20 11:58] LABS: CREATININE 0.9 mg/dL (0.55-1.3); PHOSPHOROUS 3.2 mg/dL (2.5-4.9)
[2023-07-20 11:59] LABS: BILIRUBIN,TOTAL 0.2 mg/dL (0.2-1); TOT PROT 7.4 g/dl (6.4-8.2)
[2023-07-20 12:12] LABS: ANISOCYTOSIS 2+; MACROCYTOSIS 0
[2023-07-21] MEDS: methylPREDNISolone NA SUCC 40 MG/1 ML VIAL IVPUSH SCH (09:06)
[2023-07-21 10:10] LABS: EOS % 0.1 % (0-4.5); HEMATOCRIT 39.2 % (32.4-45.2); HEMOGLOBIN 12.9 GM/dL (10.7-15.3); MCH 28.8 pg (25.7-33.7); MEAN CELL VOLUME 87.5 fl (80-96); MEAN PLT VOLUME 6.4 fl (7.5-11.1); MONO % 6.6 % (3.8-10.2); NEUT % 81.3 % (42.8-82.8); PLATELET COUNT 328 10^3/uL (134-434); RBC 4.48 M/mm3 (3.60-5.2); RDW 13.8 % (11.6-15.6); WHITE BLOOD COUNT 9.3 K/mm3 (4.0-10.0)
[2023-07-21 10:24] VITALS: RESP 18
[2023-07-21 10:24] LABS: POTASSIUM 4.1 mmol/L (3.5-5.1)
[2023-07-21 10:42] LABS: CALCIUM 8.8 mg/dL (8.5-10.1)
[2023-07-21 10:43] LABS: ALBUMIN 3.4 g/dl (3.4-5.0); BLOOD UREA NITROGEN 25.2 mg/dL (7-18); MAGNESIUM 2.6 mg/dL (1.8-2.4)
[2023-07-21 10:46] LABS: PHOSPHOROUS 3.2 mg/dL (2.5-4.9)
[2023-07-21 10:47] LABS: BILIRUBIN,TOTAL 0.2 mg/dL (0.2-1); TOT PROT 7.2 g/dl (6.4-8.2)
[2023-07-22 09:09] LABS: BASO % 0.8 % (0-2.0); EOS % 0.6 % (0-4.5); HEMATOCRIT 42.2 % (32.4-45.2); HEMOGLOBIN 13.9 GM/dL (10.7-15.3); LYMPH % 16.5 % (8-40); MCH 28.7 pg (25.7-33.7); MEAN PLT VOLUME 6.3 fl (7.5-11.1); MONO % 7.2 % (3.8-10.2); NEUT % 74.9 % (42.8-82.8); PLATELET COUNT 391 10^3/uL (134-434); RBC 4.85 M/mm3 (3.60-5.2); RDW 13.7 % (11.6-15.6); WHITE BLOOD COUNT 8.6 K/mm3 (4.0-10.0)
[2023-07-22 09:10] VITALS: BP 156/75; PULSE 77; TEMP 98.5
[2023-07-22 09:23] LABS: POTASSIUM 4.1 mmol/L (3.5-5.1)
[2023-07-22 09:24] LABS: CALCIUM 8.7 mg/dL (8.5-10.1)
[2023-07-22 09:25] LABS: ALBUMIN 3.6 g/dl (3.4-5.0); BLOOD UREA NITROGEN 21.6 mg/dL (7-18); MAGNESIUM 2.3 mg/dL (1.8-2.4)
[2023-07-22 09:27] LABS: CREATININE 0.9 mg/dL (0.55-1.3)
[2023-07-22 09:28] LABS: PHOSPHOROUS 3.2 mg/dL (2.5-4.9)
[2023-07-22 09:30] LABS: BILIRUBIN,TOTAL 0.3 mg/dL (0.2-1); TOT PROT 7.9 g/dl (6.4-8.2)
== END 2023-07-22 16:47 | disposition home or self-care (01) | DRG 190 ==
LOC: JER 16:58 → JERBED 21:21 → J6S 23:17 → OBSVTOIN 07-18 16:52
PROVIDERS: ADMIT Internal Medicine; ATTEND Internal Medicine
DX: J44.1 Chronic obstructive pulmonary disease with (acute) exacerbation (principal); J96.01 Acute respiratory failure with hypoxia; J45.901 Unspecified asthma with (acute) exacerbation; F11.20 Opioid dependence, uncomplicated; K50.90 Crohn's disease, unspecified, without complications; J98.11 Atelectasis; E11.40 Type 2 diabetes mellitus with diabetic neuropathy, unspecified; M47.9 Spondylosis, unspecified; F17.210 Nicotine dependence, cigarettes, uncomplicated; J44.0 Chronic obstructive pulmonary disease with (acute) lower respiratory infection; G47.00 Insomnia, unspecified; J20.9 Acute bronchitis, unspecified; R59.0 Localized enlarged lymph nodes; Z99.81 Dependence on supplemental oxygen
CPT/HCPCS: 0241U-QW; 36415; 71046-TC-FY; 71250-TC; 80048; 80053; 81003; 82550; 82553; 83605; 83735; 83880; 84100; 84484; 85025; 85027; 87389; 90677; 93005; 93010; 94640; 94761; 99285-25; G0378

== ENCOUNTER 2024-04-11 13:50 | Emergency (ER) | payer OTHER ==
[2024-04-11 14:39] VITALS: RESP 18; BMI 32.9
[2024-04-11 15:14] LABS: BASO % 0.7 % (0-2.0); EOS % 2.9 % (0-4.5); HEMATOCRIT 34.3 % (32.4-45.2); HEMOGLOBIN 11.6 GM/dL (10.7-15.3); LYMPH % 22.3 % (8-40); MCH 28.9 pg (25.7-33.7); MCHC 33.8 g/dl (32.0-36.0); MEAN CELL VOLUME 85.4 fl (80-96); MEAN PLT VOLUME 6.2 fl (7.5-11.1); MONO % 9.7 % (3.8-10.2); NEUT % 64.4 % (42.8-82.8); PLATELET COUNT 265 10^3/uL (134-434); RBC 4.02 M/mm3 (3.60-5.2); RDW 14.5 % (11.6-15.6); WHITE BLOOD COUNT 4.3 K/mm3 (4.0-10.0)
[2024-04-11] MEDS ORDERED: NALOXONE HCL 0.4 MG/ML VIAL ONE (15:16)
[2024-04-11 15:20] LABS: VENOUS BASE EXCESS 0.4 mmol/L (-2-2); VENOUS O2 SATURATION 75.8 % (70-80); VENOUS PCO2 63.3 mmHg (38-52); VENOUS PH 7.273 (7.310-7.410)
[2024-04-11] MEDS: NALOXONE HCL 0.4 MG/ML VIAL IVPUSH ONE (15:23)
[2024-04-11 15:32] LABS: POTASSIUM 4.3 mmol/L (3.5-5.1)
[2024-04-11 15:34] LABS: ALBUMIN 3.3 g/dl (3.4-5.0); BLOOD UREA NITROGEN 15.8 mg/dL (7-18); CALCIUM 9.2 mg/dL (8.5-10.1)
[2024-04-11 15:38] LABS: BILIRUBIN,TOTAL 0.2 mg/dL (0.2-1); CREATININE 0.8 mg/dL (0.55-1.3); TOT PROT 6.7 g/dl (6.4-8.2)
[2024-04-11 17:48] VITALS: BP 117/75; PULSE 75; TEMP 97.7
== END 2024-04-11 18:21 | disposition home or self-care (01) ==
LOC: JER 13:50
DX: F11.929 Opioid use, unspecified with intoxication, unspecified (principal)
CPT/HCPCS: 36415; 71045-TC-FY; 80053; 82803; 84484; 85025; 93005; 93010; 99285-25

== ENCOUNTER 2025-01-05 00:33 | Emergency (ER) | payer OTHER ==
[2025-01-05 00:41] VITALS: BP 109/71; PULSE 92; RESP 20; TEMP 97.5; BMI 31.1
[2025-01-05 01:31] LABS: ABSOLUTE IMMATURE GRANULOCYTES 0.03 x10^3/uL (0.0-0.031); BASOPHILS # 0.06 x10^3/uL (0.01-0.08); EOSINOPHIL % 2.2 % (0.7-5.8); EOSINOPHILS # 0.15 x10^3/uL (0.04-0.36); IMMATURE PLATELET FRACTION # 3.50 x10^3/uL; MCHC 33.3 g/dl (32.2-35.5); MEAN CELL VOLUME 88.9 fl (79.4-94.8); MEAN PLT VOLUME 8.7 fl (9.4-12.3); MONOCYTE # 0.50 x10^3/uL (0.24-0.86); MONOCYTE % 7.2 % (4.7-12.5); RDW 14.1 % (12.4-16.4)
[2025-01-05 01:48] LABS: EPI CELLS >36 /uL (0-25.1); HYALINE CASTS 46 /uL (0-3.1); URINE APPEARANCE TURBID; URINE BACTERIA >9,000 /uL (0-1359); URINE BILIRUBIN NEGATIVE (NEGATIVE); URINE COLOR YELLOW; URINE GLUCOSE (UA) NEGATIVE (NEGATIVE); URINE KETONE TRACE (NEGATIVE); URINE LEUK ESTERASE NEGATIVE (NEGATIVE); URINE NITRITE NEGATIVE (NEGATIVE); URINE PROTEIN 2+ (NEGATIVE); URINE UROBILINOGEN 0.2 mg/dL (0.2-1.0)
[2025-01-05 02:00] LABS: GLUCOSE,RANDOM 111.0 mg/dL (74-106)
[2025-01-05 02:01] LABS: TOT PROT 7.4 g/dl (6.4-8.2)
[2025-01-05 02:02] LABS: CO2 24.0 mmol/L (21-32)
[2025-01-05 02:03] LABS: ALK PHOS 104.0 U/L (40-150)
[2025-01-05 02:06] LABS: CREATININE 0.87 mg/dL (0.55-1.3); SGOT/AST 28.0 U/L (5-34); SGPT/ALT 22.0 U/L (0-55)
[2025-01-05] MEDS ORDERED: SULFAMETHOXAZOLE/TRIMETHOPRIM 800MG/160MG D.S. TABLET ONE (02:12)
[2025-01-05] MEDS: SULFAMETHOXAZOLE/TRIMETHOPRIM 800MG/160MG D.S. TABLET PO ONE (02:15)
[2025-01-05 02:25] LABS: HIV INTERPRETATION NEGATIVE (NEGATIVE)
[2025-01-05 08:42] LABS: URINE RBC 236 /uL (0-23.9); URINE WBC 319 /uL (0-25.8)
[2025-01-05 08:43] LABS: URINE CRYSTALS PRESENT /hpf; YEAST NONE SEEN (NEGATIVE)
[2025-01-05 13:41] LABS: HCV DIAGNOSTIC IN-HOUSE W/RFLX NON-REACTIVE (NONREACTIVE)
== END 2025-01-05 02:28 | disposition home or self-care (01) ==
LOC: JER 00:33
DX: R30.0 Dysuria (principal); R31.9 Hematuria, unspecified; R10.30 Lower abdominal pain, unspecified
CPT/HCPCS: 36415; 80053; 81003; 85025; 86803; 87086; 87389; 99283-25